=== PATIENT | female | born 1955 | race Asian ===

== ENCOUNTER 2025-02-09 11:30 | Emergency (ER) | payer OTHER ==
[~2025-02-09] VITALS: Ht 172.7 cm; Wt 81.0 kg
[2025-02-09 12:07] LABS: PLATELET COUNT (AUTO) 143 K/uL (150-450); RED BLOOD CELL COUNT(AUTO) 4.49 MIL/uL (4.00-5.20); RED CELL DISTRIBUTION WIDTH 13.2 % (11.5-14.5); WHITE BLOOD COUNT (AUTO) 3.5 K/uL (4.5-11.0)
[2025-02-09 12:08] LABS: RBC MORPHOLOGY COMMENT NORMAL RBC MORPH
[2025-02-09 12:18] LABS: CALCIUM, TOTAL 8.6 mg/dL (8.8-10.5); CREATININE 0.69 mg/dL (0.60-1.30); GLOMERULAR FILTR. RATE CALC > 60 mL/min (>60); GLUCOSE,RANDOM 135 mg/dL (70-110); SODIUM SERUM 138 mmol/L (136-145); UREA NITROGEN, BLOOD 13 mg/dL (7-18)
[2025-02-09 12:22] LABS: ASPARTATE AMINOTRANSFERASE 38.0 U/L (15-37); CREATINE KINASE, TOTAL ONLY 223.0 U/L (26-192); TOTAL PROTEIN, SERUM 7.2 g/dL (6.4-8.2)
[2025-02-09] MEDS: ONDANSETRON HCL 4 MG/2 ML VIAL IVP ONE (12:23)
[2025-02-09] MEDS: MECLIZINE HCL 25 MG TABLET PO ONE (12:23)
[2025-02-09 12:29] LABS: TROPONIN I-HIGH SENSITIVITY 5 ng/L (<51)
[2025-02-09 12:49] LABS: APPEARANCE,URINE CLEAR (CLEAR); GLUCOSE, URINE (UA) NEGATIVE (NEGATIVE); LEUKOCYTE ESTERASE ,URINE NEGATIVE (NEGATIVE); NITRATE,URINE NEGATIVE (NEGATIVE); OCCULT BLOOD,URINE NEGATIVE (NEGATIVE); SPECIFIC GRAVITIY, URINE 1.003 (1.003-1.030)
[2025-02-09 15:44] VITALS: BP 123/84; PULSE 77; RESP 18; TEMP 98.3; O2SAT 94
[2025-02-09] MEDS ORDERED: SODIUM CHLORIDE 0.9% 1,000 ML IV ONE (16:00)
[2025-02-09] MEDS ORDERED: ACETAMINOPHEN 325 MG TABLET PO PRN (16:00)
[2025-02-09] MEDS ORDERED: HEPARIN SODIUM,PORCINE 5,000 UNITS/ML VIAL SQ SCH (16:00)
[2025-02-09] MEDS ORDERED: ONDANSETRON HCL 4 MG/2 ML VIAL IVP PRN (16:00)
[2025-02-09] MEDS ORDERED: DOCUSATE SODIUM 100 MG CAPSULE PO SCH (21:00)
== END 2025-02-09 16:39 | disposition left against medical advice (07) ==
LOC: EMS 11:41 → EDH 14:34 → UNDOADMIN 14:34 → EMS 16:39
DX: G90.9 Disorder of the autonomic nervous system, unspecified (principal); R11.0 Nausea; R42 Dizziness and giddiness; R51.9 Headache, unspecified; R06.02 Shortness of breath; Z88.0 Allergy status to penicillin
CPT/HCPCS: 99285; 96374; 70450; 71045; 80048; 80076; 81003; 82550; 83735; 83880; 84484; 85025; 85610; 85730; 36415; 82962; 93005; J2405